=== PATIENT | female | born 1995 | race Caucasian/White ===

== ENCOUNTER 2019-07-14 20:00 | Emergency (ER) | payer OTHER ==
[~2019-07-14] VITALS: Ht 162.6 cm; Wt 97.1 kg
[~2019-07-14 20:00] MED LIST: DESYREL300 MG; HYDROXYZINE HCL25 MG PO; LEXAPRO10 MG PO; PANTOPRAZOLE SO40 MG PO; SEROQUEL25 MG PO; Z LITHIUM CARBON
--- OUTSIDE RECORDS SUMMARY | 2019-07-14 20:04 | XMS REPORT ---
[facility] Address Unknown Phone Unavailable Care Team Providers Care Regulatory Associate Name Role Phone Carola BARNES Unavailable Unavailable Payers Payer Name Policy Type Policy Number Effective Date Expiration Date Problems This patient has no known problems. Allergies, Adverse Reactions, Alerts Allergy Name Allergy Type Status Severity Reaction(s) Onset Date Inactive Date Treating Clinician Comments No Known Allergies DA Active U 2019-01-02 00:00:00 No Known Allergies DA Active U 2018-07-23 00:00:00 No Known Allergies DA Active U 2015-09-25 00:00:00 Medications This patient has no known medications. Encounters Start Date/Time End Date/Time Encounter Type Admission Type Attending Clinicians [facility] Care Department Encounter ID 2018-08-10 00:00:00 2018-08-10 00:00:00 Outpatient [facility] [id number] 2018-08-08 00:00:00 2018-08-08 00:00:00 Outpatient [facility] [id number] 2018-08-05 00:00:00 2018-08-05 00:00:00 Outpatient [facility] [id number] 2018-08-02 00:00:00 2018-08-02 00:00:00 Outpatient [facility] [id number] 2018-07-28 00:00:00 2018-07-28 00:00:00 Outpatient [facility] [id number] 2018-07-08 00:00:00 2018-07-08 00:00:00 Outpatient [facility] [id number] 2018-07-07 00:00:00 2018-07-07 00:00:00 Outpatient [facility] [id number] 2018-06-10 00:00:00 2018-06-10 00:00:00 Outpatient [facility] [id number] 2018-06-01 00:00:00 2018-06-01 00:00:00 Outpatient [facility] [id number] 2018-05-27 15:46:19 2018-05-27 15:46:19 Outpatient [facility] [id number] 2018-05-27 14:42:59 2018-05-27 14:42:59 Outpatient [facility] [id number] 2018-05-26 09:10:24 2018-05-26 09:10:24 Outpatient [facility] [id number] 2018-05-25 00:00:00 2018-05-25 00:00:00 Outpatient [facility] [id number] 2018-05-18 15:24:07 2018-05-18 15:24:07 Outpatient [facility] [id number] 2018-05-12 00:00:00 2018-05-12 00:00:00 Outpatient [facility] [id number] 2018-05-10 00:00:00 2018-05-10 00:00:00 Outpatient [facility] [id number] 2018-05-05 19:22:00 2018-05-05 19:22:00 Emergency [facility] [id number] 2018-05-04 07:32:00 2018-05-04 07:32:00 Outpatient [facility] [id number] 2018-05-04 00:00:00 2018-05-04 00:00:00 Outpatient [facility] [id number] 2018-04-25 13:04:32 2018-04-25 13:04:32 Outpatient [facility] [id number] 2018-04-25 00:00:00 2018-04-25 00:00:00 Outpatient [facility] [id number] 2018-04-22 00:00:00 2018-04-22 00:00:00 Outpatient [facility] [id number] 2018-04-21 16:30:03 2018-04-21 16:30:03 Outpatient [facility] [id number] 2018-04-20 10:40:43 2018-04-20 10:40:43 Outpatient [facility] [id number] 2018-04-15 00:00:00 2018-04-15 00:00:00 Outpatient [facility] [id number] 2018-04-13 00:00:00 2018-04-13 00:00:00 Outpatient [facility] [id number] 2018-04-11 14:00:38 2018-04-11 14:00:38 Outpatient [facility] [id number] 2018-04-08 00:00:00 2018-04-08 00:00:00 Outpatient [facility] [id number] 2018-04-06 00:00:00 2018-04-06 00:00:00 Outpatient [facility] [id number] 2018-03-25 16:25:18 2018-03-25 16:25:18 Outpatient [facility] [id number] 2018-03-25 00:00:00 2018-03-25 00:00:00 Outpatient [facility] [id number] 2018-03-25 00:00:00 2018-03-25 00:00:00 Outpatient [facility] [id number] 2018-03-24 00:00:00 2018-03-24 00:00:00 Outpatient [facility] [id number] 2018-03-21 00:00:00 2018-03-21 00:00:00 Outpatient [facility] [id number] 2018-03-18 15:53:54 2018-03-18 15:53:54 Outpatient [facility] [id number] 2018-03-16 00:00:00 2018-03-16 00:00:00 Outpatient [facility] [id number] 2018-03-11 14:22:55 2018-03-11 14:22:55 Outpatient [facility] [id number] 2018-03-11 00:00:00 2018-03-11 00:00:00 Outpatient [facility] [id number] 2018-03-11 00:00:00 2018-03-11 00:00:00 Outpatient [facility] [id number] 2018-03-09 00:00:00 2018-03-09 00:00:00 Outpatient [facility] [id number] 2018-03-07 14:14:49 2018-03-07 14:14:49 Outpatient [facility] [id number] 2018-03-07 00:00:00 2018-03-07 00:00:00 Outpatient [facility] [id number] 2018-03-07 00:00:00 2018-03-07 00:00:00 Outpatient [facility] [id number] 2018-03-02 00:00:00 2018-03-02 00:00:00 Outpatient [facility] [id number] 2018-02-25 00:00:00 2018-02-25 00:00:00 Outpatient [facility] [id number] 2018-02-18 11:31:07 2018-02-18 11:31:07 Outpatient [facility] [id number] 2018-02-18 00:00:00 2018-02-18 00:00:00 Outpatient [facility] [id number] 2018-02-18 00:00:00 2018-02-18 00:00:00 Outpatient [facility] [id number] 2018-02-16 07:50:25 2018-02-16 07:50:25 Outpatient [facility] [id number] 2018-01-28 10:57:01 2018-01-28 10:57:01 Outpatient [facility] [id number] 2018-01-18 00:00:00 2018-01-18 00:00:00 Outpatient [facility] [id number] 2018-01-13 23:42:00 2018-01-13 23:42:00 Emergency [facility] [id number] 2018-01-04 00:00:00 2018-01-04 00:00:00 Outpatient [facility] [id number] 2018-01-04 00:00:00 2018-01-04 00:00:00 Outpatient [facility] [id number] 2018-01-03 11:49:32 2018-01-03 11:49:32 Outpatient [facility] [id number] 2018-01-03 09:35:36 2018-01-03 09:35:36 Outpatient [facility] [id number] 2018-01-03 00:00:00 2018-01-03 00:00:00 Outpatient [facility] [id number] 2017-12-13 12:11:27 2017-12-13 12:11:27 Outpatient [facility] [id number] 2017-12-10 02:46:06 2017-12-10 02:46:06 Emergency [facility] [id number] 2017-12-07 07:53:26 2017-12-07 07:53:26 Outpatient [facility] [id number] 2017-11-18 00:00:00 2017-11-18 00:00:00 Outpatient [facility] [id number] 2017-11-10 14:55:10 2017-11-10 14:55:10 Outpatient [facility] [id number] 2017-10-28 00:00:00 2017-10-28 00:00:00 Outpatient [facility] [id number] 2017-10-07 19:13:31 2017-10-07 19:13:31 Outpatient [facility] [id number] 2017-09-21 16:14:12 2017-09-21 16:14:12 Outpatient [facility] [id number] 2017-08-26 00:00:00 2017-08-26 00:00:00 Outpatient [facility] [id number] 2017-08-12 00:35:32 2017-08-12 00:35:32 Emergency [facility] [id number] 2017-06-09 00:00:00 2017-06-09 00:00:00 Outpatient [facility] [id number] 2017-06-08 00:00:00 2017-06-08 00:00:00 Outpatient [facility] [id number] 2017-06-08 00:00:00 2017-06-08 00:00:00 Outpatient [facility] [id number] 2017-06-03 09:50:04 2017-06-03 09:50:04 Outpatient [facility] [id number] 2017-05-27 00:00:00 2017-05-27 00:00:00 Outpatient [facility] [id number] 2017-05-19 00:00:00 2017-05-19 00:00:00 Outpatient [facility] [id number] 2017-05-17 13:53:30 2017-05-17 13:53:30 Outpatient [facility] [id number] 2017-05-14 12:24:36 2017-05-14 12:24:36 Outpatient [facility] [id number] 2017-05-14 11:21:58 2017-05-14 11:21:58 Outpatient [facility] [id number] 2017-05-14 00:00:00 2017-05-14 00:00:00 Outpatient [facility] [id number] 2017-05-12 10:55:12 2017-05-12 10:55:12 Outpatient [facility] [id number] 2017-05-07 00:00:00 2017-05-07 00:00:00 Outpatient [facility] [id number] 2017-05-05 00:00:00 2017-05-05 00:00:00 Outpatient [facility] [id number] 2017-05-04 14:50:19 2017-05-04 14:50:19 Outpatient [facility] [id number] 2017-04-23 00:00:00 2017-04-23 00:00:00 Outpatient [facility] [id number] 2017-04-22 16:23:33 2017-04-22 16:23:33 Outpatient [facility] [id number] 2017-04-22 00:00:00 2017-04-22 00:00:00 Outpatient [facility] [id number] 2017-04-20 16:13:07 2017-04-20 16:13:07 Outpatient [facility] [id number] 2017-04-15 00:00:00 2017-04-15 00:00:00 Outpatient [facility] [id number] 2017-04-13 00:00:00 2017-04-13 00:00:00 Outpatient [facility] [id number] 2017-04-08 09:56:02 2017-04-08 09:56:02 Outpatient [facility] [id number] 2017-04-08 08:52:31 2017-04-08 08:52:31 Outpatient [facility] [id number] 2017-04-08 00:00:00 2017-04-08 00:00:00 Outpatient [facility] [id number] 2017-04-07 00:00:00 2017-04-07 00:00:00 Outpatient [facility] [id number] 2017-04-06 20:43:21 2017-04-06 20:43:21 Outpatient [facility] [id number] 2017-04-06 15:49:29 2017-04-06 15:49:29 Emergency [facility] [id number] 2017-04-04 20:18:54 2017-04-04 20:18:54 Emergency [facility] [id number] 2017-04-04 19:28:02 2017-04-04 19:28:02 Emergency [facility] [id number] 2017-03-24 00:00:00 2017-03-24 00:00:00 Outpatient [facility] [id number] 2017-03-22 00:00:00 2017-03-22 00:00:00 Outpatient [facility] [id number] 2017-03-17 13:59:37 2017-03-17 13:59:37 Outpatient [facility] [id number] 2017-03-10 13:52:15 2017-03-10 13:52:15 Outpatient [facility] [id number] 2017-03-03 16:00:42 2017-03-03 16:00:42 Outpatient [facility] [id number] 2017-03-03 13:29:56 2017-03-03 13:29:56 Outpatient [facility] [id number] 2017-02-24 13:38:44 2017-02-24 13:38:44 Outpatient [facility] [id number] 2017-02-19 11:33:43 2017-02-19 11:33:43 Outpatient [facility] [id number] 2017-02-17 14:15:23 2017-02-17 14:15:23 Outpatient [facility] [id number] 2017-02-11 00:00:00 2017-02-11 00:00:00 Outpatient [facility] [id number] 2017-02-10 00:00:00 2017-02-10 00:00:00 Outpatient [facility] [id number] 2017-02-01 00:00:00 2017-02-01 00:00:00 Outpatient [facility] [id number] 2017-01-26 00:00:00 2017-01-26 00:00:00 Outpatient [facility] [id number] 2017-01-19 11:34:18 2017-01-19 11:34:18 Outpatient [facility] [id number] 2017-01-18 13:16:38 2017-01-18 13:16:38 Outpatient [facility] [id number] 2017-01-13 00:00:00 2017-01-13 00:00:00 Outpatient [facility] [id number] 2017-01-12 11:15:25 2017-01-12 11:15:25 Outpatient [facility] [id number] 2017-01-06 16:11:59 2017-01-06 16:11:59 Outpatient [facility] [id number] 2017-01-05 08:00:26 2017-01-05 08:00:26 Outpatient [facility] [id number] 2016-12-30 07:07:00 2016-12-30 07:07:00 Outpatient [facility] [id number] 2016-12-29 11:03:05 2016-12-29 11:03:05 Outpatient [facility] [id number] 2016-12-21 00:00:00 2016-12-21 00:00:00 Outpatient [facility] [id number] 2016-12-18 14:38:22 2016-12-18 14:38:22 Outpatient [facility] [id number] 2016-12-17 10:13:18 2016-12-17 10:13:18 Outpatient [facility] [id number] 2016-12-16 13:27:25 2016-12-16 13:27:25 Outpatient [facility] [id number] 2016-12-16 00:00:00 2016-12-16 00:00:00 Outpatient [facility] [id number] 2016-12-16 00:00:00 2016-12-16 00:00:00 Outpatient [facility] [id number] 15:59:37 2016 15:59:37 Outpatient [facility] [id number] 2016-12-11 00:00:00 2016-12-11 00:00:00 Outpatient [facility] [id number] 2016-12-03 00:00:00 2016-12-03 00:00:00 Outpatient [facility] [id number] 2016-12-03 00:00:00 2016-12-03 00:00:00 Outpatient [facility] [id number] 2016-12-01 15:17:37 2016-12-01 15:17:37 Outpatient [facility] [id number] 2016-11-26 13:10:13 2016-11-26 13:10:13 Outpatient [facility] [id number] 2016-11-26 11:29:40 2016-11-26 11:29:40 Outpatient [facility] [id number] 2016-11-24 13:49:44 2016-11-24 13:49:44 Outpatient [facility] [id number] 2016-11-18 08:07:45 2016-11-18 08:07:45 Outpatient [facility] [id number] 2016-11-09 08:23:29 2016-11-09 08:23:29 Outpatient [facility] [id number] 2016-10-27 10:03:05 2016-10-27 10:03:05 Outpatient [facility] [id number] 2016-10-21 22:39:58 2016-10-21 22:39:58 Emergency [facility] [id number] 2016-10-21 22:04:08 2016-10-21 22:04:08 Emergency [facility] [id number] Results Test Description Test Time Test Comments Text Results Atomic Results Result Comments CHEST 2 VIEWS 2019-07-02 00:43:00 [facility] [place] [address] Patient Name: BIA SEGUNDO MR #: [id number] : 1995 Age/Sex: 23/F Req #: [id number] Adm Physician: Ordered by: RULA BARNES MD Report #: [id number] Location: ER Room/Bed: Procedure: [id number] DX/CHEST 2 VIEWS Exam Date: 07/01/19 Exam Time: 2340 REPORT STATUS: Signed EXAMINATION: CHEST 2 VIEWS INDICATION: Left chest wall pain, cough COMPARISON: None FINDINGS: TUBES and LINES: None. LUNGS: Low lung volumes with bibasilar atelectasis. Subtle central bronchial wall thickening. No consolidations. PLEURA: No pleural effusion or pneumothorax. HEART AND MEDIASTINUM: The cardiomediastinal silhouette is unremarkable. BONES AND SOFT TISSUES: No acute osseous lesion. Soft tissues are unremarkable. UPPER ABDOMEN: No free air under the diaphragm. IMPRESSION: Subtle findings which can be seen with bronchitis. No consolidations. Low lung volumes with bibasilar atelectasis. Signed by: Reagan Schofield DO on 07/02/2019 12:45 AM Dictated By: REAGAN SCHOFIELD DO Transcribed By: VANE on 07/02/1944 COPY TO: RULA BARNES MD BASIC METABOLIC PANEL 2019-01-02 06:36:00 SODIUM (test code=NA) 140 mmol/L 136-145 POTASSIUM (test code=K) 4.2 mmol/L 3.5-5.1 CHLORIDE (test code=CL) 106.0 mmol/L 98-107 CARBON DIOXIDE (test code=CO2) 24.0 mmol/L 21-32 ANION GAP (test code=GAP) 14.2 10-20 GLUCOSE (test code=GLU) 89 mg/dL 74-106 BLOOD UREA NITROGEN (test code=BUN) 17 mg/dL 7-18 GLOMERULAR FILTRATION RATE (test code=GFR) > 60 mL/min >=60 Estimated GFR by using Modified MDRD formula.Chronic kidney disease is defined as either kidney damageor GFR <60 mL/min/1.73 m2 for >3 months. CREATININE (test code=CREAT) 0.70 mg/dL 0.55-1.02 Note change in reference range due to change in reagent. BUN/CREATININE RATIO (test code=BUN/CREA) 24.3 10-20 CALCIUM (test code=CA) 9.1 mg/dL 8.5-10.1 HEPATIC FUNCTION [id number] 06:36:00* Test Item Value Reference Range Comments TOTAL PROTEIN (test code=PROT) 7.4 gram/dL 6.4-8.2 ALBUMIN (test code=ALB) 3.7 g/dL 3.4-5.0 GLOBULIN (test code=GLOB) 3.7 gram/dL 2.7-4.2 ALBUMIN/GLOBULIN RATIO (test code=A/G) 1.0 0.75-1.50 BILIRUBIN TOTAL (test code=BILT) 0.20 mg/dL 0.0-1.0 BILIRUBIN DIRECT (test code=BILD) < 0.05 mg/dL 0.0-0.20 SGOT/AST (test code=AST) 14 IUnit/L 15-37 SGPT/ALT (test code=ALT) 24 IUnit/L 12-78 ALKALINE PHOSPHATASE TOTAL (test code=ALKP) 68 IUnit/L 45-117 Note change in reference range due to change in reagent. HCG SERUM [id number] 06:36:00* Test Item Value Reference Range Comments HCG SERUM QUAL (test code=HCGQL) NEGATIVE NEGATIVE This HCGQL test is NOT applicable for MALE patients.Check with nurse about probable order error.If Tumor Marker Test needed, nurse should order test "HCGTU"(Test #550.42062) [id number] 06:36:00* Test Item Value Reference Range Comments ACETAMINOPHEN (test code=ACET) < 10 mcg/mL 10-30 A RANGE OF 10-30 mcg/mL IS A THERAPEUTIC RANGE. TOXIC CONCENTRATIONS: >150 mcg/mL AT 4 HOURS AFTER INGESTION >=50 mcg/mL AT 12 HOURS AFTER INGESTION [id number] 06:36:00* Test Item Value Reference Range Comments SALICYLATE (test code=LEN) < 1.7 mg/dL 2.8-20.0 [id number] 06:36:00* Test Item Value Reference Range Comments ALCOHOL (test code=ALC) < 3 mg/dL 0.0-3.0 INTERPRETIVE DATA NOTE: POSITIVE SCREENING RESULTS SHOULD BE CONSIDERED PRESUMPTIVE.WHEN COLLECTED FOR MEDICAL PURPOSES ONLY. SPECIMEN WILL NOTBE COLLECTED BY CHAIN OF CUSTODY.IF A CONFIRMATION OF POSITIVE RESULTS IS DESIRED, ACONFIRMATION TEST MUST BE REQUESTED BY THE PHYSICIAN AT ANADDITIONAL CHARGE TO THE PATIENT. BASIC METABOLIC [id number] 06:31:00* Test Item Value Reference Range Comments SODIUM (test code=NA) 140 mmol/L 136-145 POTASSIUM (test code=K) 4.2 mmol/L 3.5-5.1 CHLORIDE (test code=CL) 106.0 mmol/L 98-107 CARBON DIOXIDE (test code=CO2) mmol/L 21-32 ANION GAP (test code=GAP) 10-20 GLUCOSE (test code=GLU) mg/dL 74-106 BLOOD UREA NITROGEN (test code=BUN) mg/dL 7-18 GLOMERULAR FILTRATION RATE (test code=GFR) mL/min >=60 CREATININE (test code=CREAT) mg/dL 0.55-1.02 BUN/CREATININE RATIO (test code=BUN/CREA) 10-20 CALCIUM (test code=CA) mg/dL 8.5-10.1 HEPATIC FUNCTION [id number] 06:31:00* Test Item Value Reference Range Comments TOTAL PROTEIN (test code=PROT) gram/dL 6.4-8.2 ALBUMIN (test code=ALB) g/dL 3.4-5.0 GLOBULIN (test code=GLOB) gram/dL 2.7-4.2 ALBUMIN/GLOBULIN RATIO (test code=A/G) 0.75-1.50 BILIRUBIN TOTAL (test code=BILT) mg/dL 0.0-1.0 BILIRUBIN DIRECT (test code=BILD) mg/dL 0.0-0.20 SGOT/AST (test code=AST) IUnit/L 15-37 SGPT/ALT (test code=ALT) IUnit/L 12-78 ALKALINE PHOSPHATASE TOTAL (test code=ALKP) IUnit/L 45-117 HCG SERUM [id number] 06:31:00* Test Item Value Reference Range Comments HCG SERUM QUAL (test code=HCGQL) NEGATIVE NEGATIVE This HCGQL test is NOT applicable for MALE patients.Check with nurse about probable order error.If Tumor Marker Test needed, nurse should order test "HCGTU"(Test #550.95150) [id number] 06:31:00* Test Item Value Reference Range Comments ACETAMINOPHEN (test code=ACET) mcg/mL 10-30 [id number] 06:31:00* Test Item Value Reference Range Comments SALICYLATE (test code=LEN) mg/dL 2.8-20.0 [id number] 06:31:00* Test Item Value Reference Range Comments ALCOHOL (test code=ALC) mg/dL 0-3 BASIC METABOLIC [id number] 06:28:00* Test Item Value Reference Range Comments SODIUM (test code=NA) 140 mmol/L 136-145 POTASSIUM (test code=K) 4.2 mmol/L 3.5-5.1 CHLORIDE (test code=CL) 106.0 mmol/L 98-107 CARBON DIOXIDE (test code=CO2) mmol/L 21-32 ANION GAP (test code=GAP) 10-20 GLUCOSE (test code=GLU) mg/dL 74-106 BLOOD UREA NITROGEN (test code=BUN) mg/dL 7-18 GLOMERULAR FILTRATION RATE (test code=GFR) mL/min >=60 CREATININE (test code=CREAT) mg/dL 0.55-1.02 BUN/CREATININE RATIO (test code=BUN/CREA) 10-20 CALCIUM (test code=CA) mg/dL 8.5-10.1 HEPATIC FUNCTION [id number] 06:28:00* Test Item Value Reference Range Comments TOTAL PROTEIN (test code=PROT) gram/dL 6.4-8.2 ALBUMIN (test code=ALB) g/dL 3.4-5.0 GLOBULIN (test code=GLOB) gram/dL 2.7-4.2 ALBUMIN/GLOBULIN RATIO (test code=A/G) 0.75-1.50 BILIRUBIN TOTAL (test code=BILT) mg/dL 0.0-1.0 BILIRUBIN DIRECT (test code=BILD) mg/dL 0.0-0.20 SGOT/AST (test code=AST) IUnit/L 15-37 SGPT/ALT (test code=ALT) IUnit/L 12-78 ALKALINE PHOSPHATASE TOTAL (test code=ALKP) IUnit/L 45-117 HCG SERUM [id number] 06:28:00* Test Item Value Reference Range Comments HCG SERUM QUAL (test code=HCGQL) NEGATIVE [id number] 06:28:00* Test Item Value Reference Range Comments ACETAMINOPHEN (test code=ACET) mcg/mL 10-30 [id number] 06:28:00* Test Item Value Reference Range Comments SALICYLATE (test code=LEN) mg/dL 2.8-20.0 [id number] 06:28:00* Test Item Value Reference Range Comments ALCOHOL (test code=ALC) mg/dL 0-3 CBC W/O [id number] 06:19:00* Test Item Value Reference Range Comments WHITE BLOOD CELL (test code=WBC) 14.4 K/mm3 4.5-12.5 RED BLOOD CELL (test code=RBC) 4.84 mill/mm3 3.7-5.2 HEMOGLOBIN (test code=HGB) 12.0 gram/dL 11.5-15.5 HEMATOCRIT (test code=HCT) 38.5 % 36.0-46.0 MEAN CELL VOLUME (test code=MCV) 79.5 fL 80-98 MEAN CELL HGB (test code=MCH) 24.8 picogram 27.0-33.0 MEAN CELL HGB CONCETRATION (test code=MCHC) 31.2 gram/dL 33.0-36.0 RED CELL DISTRIBUTION WIDTH (test code=RDW) 13.7 % 11.6-16.2 PLATELET COUNT (test code=PLT) 305 K/mm3 150-450 MEAN PLATELET VOLUME (test code=MPV) 10.7 fL 6.7-11.0 CBC W/O [id number] 06:18:00* Test Item Value Reference Range Comments WHITE BLOOD CELL (test code=WBC) K/mm3 4.5-12.5 RED BLOOD CELL (test code=RBC) mill/mm3 3.7-5.2 HEMOGLOBIN (test code=HGB) 12.0 gram/dL 11.5-15.5 HEMATOCRIT (test code=HCT) 38.5 % 36.0-46.0 MEAN CELL VOLUME (test code=MCV) fL 80-98 MEAN CELL HGB (test code=MCH) picogram 27.0-33.0 MEAN CELL HGB CONCETRATION (test code=MCHC) gram/dL 33.0-36.0 RED CELL DISTRIBUTION WIDTH (test code=RDW) % 11.6-16.2 PLATELET COUNT (test code=PLT) K/mm3 150-450 MEAN PLATELET VOLUME (test code=MPV) fL 6.7-11.0 URINALYSIS [id number] 04:29:00* Test Item Value Reference Range Comments UA COLOR (test code=COLU) YELLOW YELLOW UA APPEARANCE (test code=APPU) CLEAR CLEAR UA GLUCOSE DIPSTICK (test code=DGLUU) NEGATIVE mg/dL NEGATIVE UA BILIRUBIN DIPSTICK (test code=BILU) NEGATIVE mg/dL NEGATIVE UA KETONE DIPSTICK (test code=KETU) NEGATIVE mg/dL NEGATIVE UA SPECIFIC GRAVITY (test code=SGU) 1.025 1.001-1.035 UA BLOOD DIPSTICK (test code=IRIS) Negative mg/dL NEGATIVE UA PH DIPSTICK (test code=FLAKITA) 5.5 5.0-8.0 UA PROTEIN DIPSTICK (test code=PROU) NEGATIVE mg/dL NEGATIVE UA UROBILINIOGEN DIPSTICK (test code=URO) Normal mg/dL NEGATIVE UA NITRITE DIPSTICK (test code=JUAN) NEGATIVE NEGATIVE UA LEUKOCYTE ESTERASE W REFLEX (test code=LEUUR) NEGATIVE Jaida/uL NEGATIVE UA WBC (test code=WBCU) 0-5 per HPF 0-5 UA RBC (test code=RBCU) 0-2 #/HPF 0-5 UA EPITHELIAL CELLS (test code=EPIU) FEW per HPF FEW UA BACTERIA (test code=BACU) FEW #/HPF NONE UA MUCUS (test code=MUCU) FEW #/LPF FEW Urine Source? Clean CatchDRUGS OF ABUSE SCREEN [id number] 04:29:00* Test Item Value Reference Range Comments URN COCAINE (test code=COCAURN) NEGATIVE <300 ng/mL URN CANNABINOIDS (test code=CANNABURN) POSITIVE <50 ng/mL This test provides only a preliminary test result. A morespecific alternate chemical method must be used in order toobtain a confirmed analytical result. Gas chromatography/mass spectrometry (GC/MS) is thepreferred confirmatory method. Other chemical confirmationmethods are available. Clinical consideration and professional judgment should be applied to any drug of abusetest result, particularly when preliminary positive resultsare used.Unconfirmed screening results must not be used fornon-medical purposes (e.g., employment testing, legaltesting). URN AMPHETAMINE (test code=AMPHETURN) NEGATIVE <1000 ng/mL URN BARBITURATE (test code=BARBITURN) NEGATIVE <200 ng/mL URN BENZODIAZEPINE (test code=BENZOURN) NEGATIVE <200 ng/mL URN OPIATES (test code=OPIATURN) NEGATIVE <300 ng/mL URN PHENCYCLIDINE (PCP) (test code=PHENCURN) NEGATIVE <25 ng/mL URN METHADONE (test code=METHAURN) NEGATIVE <300 ng/mL Urine Source? Clean CatchURINALYSIS [id number] 04:27:00* Test Item Value Reference Range Comments UA COLOR (test code=COLU) YELLOW YELLOW UA APPEARANCE (test code=APPU) CLEAR CLEAR UA GLUCOSE DIPSTICK (test code=DGLUU) NEGATIVE mg/dL NEGATIVE UA BILIRUBIN DIPSTICK (test code=BILU) NEGATIVE mg/dL NEGATIVE UA KETONE DIPSTICK (test code=KETU) NEGATIVE mg/dL NEGATIVE UA SPECIFIC GRAVITY (test code=SGU) 1.025 1.001-1.035 UA BLOOD DIPSTICK (test code=IRIS) Negative mg/dL NEGATIVE UA PH DIPSTICK (test code=FLAKITA) 5.5 5.0-8.0 UA PROTEIN DIPSTICK (test code=PROU) NEGATIVE mg/dL NEGATIVE UA UROBILINIOGEN DIPSTICK (test code=URO) Normal mg/dL NEGATIVE UA NITRITE DIPSTICK (test code=JUAN) NEGATIVE NEGATIVE UA LEUKOCYTE ESTERASE W REFLEX (test code=LEUUR) NEGATIVE Jaida/uL NEGATIVE UA WBC (test code=WBCU) 0-5 per HPF 0-5 UA RBC (test code=RBCU) 0-2 #/HPF 0-5 UA EPITHELIAL CELLS (test code=EPIU) FEW per HPF FEW UA BACTERIA (test code=BACU) FEW #/HPF NONE UA MUCUS (test code=MUCU) FEW #/LPF FEW Urine Source? Clean CatchDRUGS OF ABUSE SCREEN [id number] 04:27:00* Test Item Value Reference Range Comments URN COCAINE (test code=COCAURN) <300 ng/mL URN CANNABINOIDS (test code=CANNABURN) <50 ng/mL URN AMPHETAMINE (test code=AMPHETURN) <1000 ng/mL URN BARBITURATE (test code=BARBITURN) <200 ng/mL URN BENZODIAZEPINE (test code=BENZOURN) <200 ng/mL URN OPIATES (test code=OPIATURN) <300 ng/mL URN PHENCYCLIDINE (PCP) (test code=PHENCURN) <25 ng/mL URN METHADONE (test code=METHAURN) <300 ng/mL Urine Source? Clean CatchBASIC METABOLIC [id number] 15:52:00* Test Item Value Reference Range Comments SODIUM (test code=NA) 140 mmol/L 136-145 RESULT VERIFIED BY REPEAT ANALYSIS POTASSIUM (test code=K) 4.4 mmol/L 3.5-5.1 CHLORIDE (test code=CL) 107.0 mmol/L 98-107 CARBON DIOXIDE (test code=CO2) 25.0 mmol/L 21-32 ANION GAP (test code=GAP) 12.4 10-20 GLUCOSE (test code=GLU) 89 mg/dL 74-106 BLOOD UREA NITROGEN (test code=BUN) 20 mg/dL 7-18 GLOMERULAR FILTRATION RATE (test code=GFR) > 60 mL/min >=60 Estimated GFR by using Modified MDRD formula.Chronic kidney disease is defined as either kidney damageor GFR <60 mL/min/1.73 m2 for >3 months. CREATININE (test code=CREAT) 0.70 mg/dL 0.55-1.02 Note change in reference range due to change in reagent. BUN/CREATININE RATIO (test code=BUN/CREA) 29.8 10-20 CALCIUM (test code=CA) 9.0 mg/dL 8.5-10.1 HEPATIC FUNCTION [id number] 15:52:00* Test Item Value Reference Range Comments TOTAL PROTEIN (test code=PROT) 8.2 gram/dL 6.4-8.2 ALBUMIN (test code=ALB) 3.8 g/dL 3.4-5.0 GLOBULIN (test code=GLOB) 4.4 gram/dL 2.7-4.2 ALBUMIN/GLOBULIN RATIO (test code=A/G) 0.9 0.75-1.50 BILIRUBIN TOTAL (test code=BILT) 0.30 mg/dL 0.0-1.0 BILIRUBIN DIRECT (test code=BILD) 0.10 mg/dL 0.0-0.20 SGOT/AST (test code=AST) 36 IUnit/L 15-37 SGPT/ALT (test code=ALT) 24 IUnit/L 12-78 ALKALINE PHOSPHATASE TOTAL (test code=ALKP) 60 IUnit/L 45-117 Note change in reference range due to change in reagent. HCG SERUM [id number] 15:52:00* Test Item Value Reference Range Comments HCG SERUM QUAL (test code=HCGQL) NEGATIVE NEGATIVE This HCGQL test is NOT applicable for MALE patients.Check with nurse about probable order error.If Tumor Marker Test needed, nurse should order test "HCGTU"(Test #550.72436) [id number] 15:52:00* Test Item Value Reference Range Comments ALCOHOL (test code=ALC) < 3 mg/dL 0.0-3.0 INTERPRETIVE DATA NOTE: POSITIVE SCREENING RESULTS SHOULD BE CONSIDERED PRESUMPTIVE.WHEN COLLECTED FOR MEDICAL PURPOSES ONLY. SPECIMEN WILL NOTBE COLLECTED BY CHAIN OF CUSTODY.IF A CONFIRMATION OF POSITIVE RESULTS IS DESIRED, ACONFIRMATION TEST MUST BE REQUESTED BY THE PHYSICIAN AT ANADDITIONAL CHARGE TO THE PATIENT. URINALYSIS [id number] 15:52:00* Test Item Value Reference Range Comments UA COLOR (test code=COLU) LIGHT YELLOW YELLOW UA APPEARANCE (test code=APPU) SLIGHTLY CLOUDY CLEAR UA GLUCOSE DIPSTICK (test code=DGLUU) NEGATIVE mg/dL NEGATIVE UA BILIRUBIN DIPSTICK (test code=BILU) NEGATIVE mg/dL NEGATIVE UA KETONE DIPSTICK (test code=KETU) Negative mg/dL NEGATIVE UA SPECIFIC GRAVITY (test code=SGU) 1.020 1.001-1.035 UA BLOOD DIPSTICK (test code=IRIS) 2+ (Moderate) NEGATIVE UA PH DIPSTICK (test code=FLAKITA) 5.0 5.0-8.0 UA PROTEIN DIPSTICK (test code=PROU) Negative mg/dL NEGATIVE UA UROBILINIOGEN DIPSTICK (test code=URO) NEGATIVE mg/dL NEGATIVE UA NITRITE DIPSTICK (test code=JUAN) NEGATIVE NEGATIVE UA LEUKOCYTE ESTERASE W REFLEX (test code=LEUUR) NEGATIVE NEGATIVE UA WBC (test code=WBCU) 0-5 #/HPF 0-5 UA RBC (test code=RBCU) 0-2 #/HPF 0-5 UA EPITHELIAL CELLS (test code=EPIU) MOD per HPF FEW UA BACTERIA (test code=BACU) FEW #/HPF NONE UA MUCUS (test code=MUCU) FEW #/LPF FEW Urine Source? Clean CatchDRUGS OF ABUSE SCREEN [id number] 15:52:00* Test Item Value Reference Range Comments URN COCAINE (test code=COCAURN) NEGATIVE <300 ng/mL URN CANNABINOIDS (test code=CANNABURN) NEGATIVE <50 ng/mL URN AMPHETAMINE (test code=AMPHETURN) NEGATIVE <1000 ng/mL URN BARBITURATE (test code=BARBITURN) NEGATIVE <200 ng/mL URN BENZODIAZEPINE (test code=BENZOURN) NEGATIVE <200 ng/mL URN OPIATES (test code=OPIATURN) NEGATIVE <300 ng/mL URN PHENCYCLIDINE (PCP) (test code=PHENCURN) NEGATIVE <25 ng/mL URN METHADONE (test code=METHAURN) NEGATIVE <300 ng/mL Urine Source? Clean CatchURINALYSIS [id number] 15:42:00* Test Item Value Reference Range Comments UA COLOR (test code=COLU) LIGHT YELLOW YELLOW UA APPEARANCE (test code=APPU) SLIGHTLY CLOUDY CLEAR UA GLUCOSE DIPSTICK (test code=DGLUU) NEGATIVE mg/dL NEGATIVE UA BILIRUBIN DIPSTICK (test code=BILU) NEGATIVE mg/dL NEGATIVE UA KETONE DIPSTICK (test code=KETU) Negative mg/dL NEGATIVE UA SPECIFIC GRAVITY (test code=SGU) 1.020 1.001-1.035 UA BLOOD DIPSTICK (test code=IRIS) 2+ (Moderate) NEGATIVE UA PH DIPSTICK (test code=FLAKITA) 5.0 5.0-8.0 UA PROTEIN DIPSTICK (test code=PROU) Negative mg/dL NEGATIVE UA UROBILINIOGEN DIPSTICK (test code=URO) NEGATIVE mg/dL NEGATIVE UA NITRITE DIPSTICK (test code=JUAN) NEGATIVE NEGATIVE UA LEUKOCYTE ESTERASE W REFLEX (test code=LEUUR) NEGATIVE NEGATIVE UA WBC (test code=WBCU) 0-5 #/HPF 0-5 UA RBC (test code=RBCU) 0-2 #/HPF 0-5 UA EPITHELIAL CELLS (test code=EPIU) MOD per HPF FEW UA BACTERIA (test code=BACU) FEW #/HPF NONE UA MUCUS (test code=MUCU) FEW #/LPF FEW Urine Source? Clean CatchDRUGS OF ABUSE SCREEN [id number] 15:42:00* Test Item Value Reference Range Comments URN COCAINE (test code=COCAURN) <300 ng/mL URN CANNABINOIDS (test code=CANNABURN) <50 ng/mL URN AMPHETAMINE (test code=AMPHETURN) <1000 ng/mL URN BARBITURATE (test code=BARBITURN) <200 ng/mL URN BENZODIAZEPINE (test code=BENZOURN) <200 ng/mL URN OPIATES (test code=OPIATURN) <300 ng/mL URN PHENCYCLIDINE (PCP) (test code=PHENCURN) <25 ng/mL URN METHADONE (test code=METHAURN) <300 ng/mL Urine Source? Clean CatchBASIC METABOLIC [id number] 15:39:00* Test Item Value Reference Range Comments SODIUM (test code=NA) 140 mmol/L 136-145 RESULT VERIFIED BY REPEAT ANALYSIS POTASSIUM (test code=K) 4.4 mmol/L 3.5-5.1 CHLORIDE (test code=CL) 107.0 mmol/L 98-107 CARBON DIOXIDE (test code=CO2) mmol/L 21-32 ANION GAP (test code=GAP) 10-20 GLUCOSE (test code=GLU) mg/dL 74-106 BLOOD UREA NITROGEN (test code=BUN) mg/dL 7-18 GLOMERULAR FILTRATION RATE (test code=GFR) mL/min >=60 CREATININE (test code=CREAT) mg/dL 0.55-1.02 BUN/CREATININE RATIO (test code=BUN/CREA) 10-20 CALCIUM (test code=CA) mg/dL 8.5-10.1 HEPATIC FUNCTION [id number] 15:39:00* Test Item Value Reference Range Comments TOTAL PROTEIN (test code=PROT) gram/dL 6.4-8.2 ALBUMIN (test code=ALB) g/dL 3.4-5.0 GLOBULIN (test code=GLOB) gram/dL 2.7-4.2 ALBUMIN/GLOBULIN RATIO (test code=A/G) 0.75-1.50 BILIRUBIN TOTAL (test code=BILT) mg/dL 0.0-1.0 BILIRUBIN DIRECT (test code=BILD) mg/dL 0.0-0.20 SGOT/AST (test code=AST) IUnit/L 15-37 SGPT/ALT (test code=ALT) IUnit/L 12-78 ALKALINE PHOSPHATASE TOTAL (test code=ALKP) IUnit/L 45-117 HCG SERUM [id number] 15:39:00* Test Item Value Reference Range Comments HCG SERUM QUAL (test code=HCGQL) NEGATIVE NEGATIVE This HCGQL test is NOT applicable for MALE patients.Check with nurse about probable order error.If Tumor Marker Test needed, nurse should order test "HCGTU"(Test #[id number]) [id number] 15:39:00* Test Item Value Reference Range Comments ALCOHOL (test code=ALC) mg/dL 0-3 BASIC METABOLIC [id number] 15:38:00* Test Item Value Reference Range Comments SODIUM (test code=NA) mmol/L 136-145 POTASSIUM (test code=K) mmol/L 3.5-5.1 CHLORIDE (test code=CL) mmol/L 98-107 CARBON DIOXIDE (test code=CO2) mmol/L 21-32 ANION GAP (test code=GAP) 10-20 GLUCOSE (test code=GLU) mg/dL 74-106 BLOOD UREA NITROGEN (test code=BUN) mg/dL 7-18 GLOMERULAR FILTRATION RATE (test code=GFR) mL/min >=60 CREATININE (test code=CREAT) mg/dL 0.55-1.02 BUN/CREATININE RATIO (test code=BUN/CREA) 10-20 CALCIUM (test code=CA) mg/dL 8.5-10.1 HEPATIC FUNCTION [id number] 15:38:00* Test Item Value Reference Range Comments TOTAL PROTEIN (test code=PROT) gram/dL 6.4-8.2 ALBUMIN (test code=ALB) g/dL 3.4-5.0 GLOBULIN (test code=GLOB) gram/dL 2.7-4.2 ALBUMIN/GLOBULIN RATIO (test code=A/G) 0.75-1.50 BILIRUBIN TOTAL (test code=BILT) mg/dL 0.0-1.0 BILIRUBIN DIRECT (test code=BILD) mg/dL 0.0-0.20 SGOT/AST (test code=AST) IUnit/L 15-37 SGPT/ALT (test code=ALT) IUnit/L 12-78 ALKALINE PHOSPHATASE TOTAL (test code=ALKP) IUnit/L 45-117 HCG SERUM [id number] 15:38:00* Test Item Value Reference Range Comments HCG SERUM QUAL (test code=HCGQL) NEGATIVE NEGATIVE This HCGQL test is NOT applicable for MALE patients.Check with nurse about probable order error.If Tumor Marker Test needed, nurse should order test "HCGTU"(Test #[id number]) [id number] 15:38:00* Test Item Value Reference Range Comments ALCOHOL (test code=ALC) mg/dL 0-3 URINALYSIS [id number] 15:34:00* Test Item Value Reference Range Comments UA COLOR (test code=COLU) LIGHT YELLOW YELLOW UA APPEARANCE (test code=APPU) SLIGHTLY CLOUDY CLEAR UA GLUCOSE DIPSTICK (test code=DGLUU) NEGATIVE mg/dL NEGATIVE UA BILIRUBIN DIPSTICK (test code=BILU) NEGATIVE mg/dL NEGATIVE UA KETONE DIPSTICK (test code=KETU) Negative mg/dL NEGATIVE UA SPECIFIC GRAVITY (test code=SGU) 1.020 1.001-1.035 UA BLOOD DIPSTICK (test code=IRIS) 2+ (Moderate) NEGATIVE UA PH DIPSTICK (test code=FLAKITA) 5.0 5.0-8.0 UA PROTEIN DIPSTICK (test code=PROU) Negative mg/dL NEGATIVE UA UROBILINIOGEN DIPSTICK (test code=URO) NEGATIVE mg/dL NEGATIVE UA NITRITE DIPSTICK (test code=JUAN) NEGATIVE NEGATIVE UA LEUKOCYTE ESTERASE W REFLEX (test code=LEUUR) NEGATIVE NEGATIVE UA WBC (test code=WBCU) per HPF 0-5 Urine Source? Clean CatchDRUGS OF ABUSE SCREEN [id number] 15:34:00* Test Item Value Reference Range Comments URN COCAINE (test code=COCAURN) <300 ng/mL URN CANNABINOIDS (test code=CANNABURN) <50 ng/mL URN AMPHETAMINE (test code=AMPHETURN) <1000 ng/mL URN BARBITURATE (test code=BARBITURN) <200 ng/mL URN BENZODIAZEPINE (test code=BENZOURN) <200 ng/mL URN OPIATES (test code=OPIATURN) <300 ng/mL URN PHENCYCLIDINE (PCP) (test code=PHENCURN) <25 ng/mL URN METHADONE (test code=METHAURN) <300 ng/mL Urine Source? Clean CatchCBC W/O [id number] 15:31:00* Test Item Value Reference Range Comments WHITE BLOOD CELL (test code=WBC) 10.7 K/mm3 4.5-12.5 RED BLOOD CELL (test code=RBC) 4.84 mill/mm3 3.7-5.2 HEMOGLOBIN (test code=HGB) 11.5 gram/dL 11.5-15.5 HEMATOCRIT (test code=HCT) 38.1 % 36.0-46.0 MEAN CELL VOLUME (test code=MCV) 78.7 fL 80-98 MEAN CELL HGB (test code=MCH) 23.8 picogram 27.0-33.0 MEAN CELL HGB CONCETRATION (test code=MCHC) 30.2 gram/dL 33.0-36.0 RED CELL DISTRIBUTION WIDTH (test code=RDW) 14.9 % 11.6-16.2 PLATELET COUNT (test code=PLT) 316 K/mm3 150-450 MEAN PLATELET VOLUME (test code=MPV) 11.2 fL 6.7-11.0 BASIC METABOLIC [id number] 22:35:00* Test Item Value Reference Range Comments SODIUM (test code=NA) 145 mmol/L 136-145 POTASSIUM (test code=K) 4.2 mmol/L 3.5-5.1 CHLORIDE (test code=CL) 109.0 mmol/L 98-107 CARBON DIOXIDE (test code=CO2) 25.0 mmol/L 21-32 ANION GAP (test code=GAP) 15.2 10-20 GLUCOSE (test code=GLU) 89 mg/dL 74-106 BLOOD UREA NITROGEN (test code=BUN) 19 mg/dL 7-18 GLOMERULAR FILTRATION RATE (test code=GFR) > 60 mL/min >=60 Estimated GFR by using Modified MDRD formula.Chronic kidney disease is defined as either kidney damageor GFR <60 mL/min/1.73 m2 for >3 months. CREATININE (test code=CREAT) 0.70 mg/dL 0.55-1.02 Note change in reference range due to change in reagent. BUN/CREATININE RATIO (test code=BUN/CREA) 28.2 10-20 CALCIUM (test code=CA) 8.8 mg/dL 8.5-10.1 HEPATIC FUNCTION [id number] 22:35:00* Test Item Value Reference Range Comments TOTAL PROTEIN (test code=PROT) 7.7 gram/dL 6.4-8.2 ALBUMIN (test code=ALB) 3.8 g/dL 3.4-5.0 GLOBULIN (test code=GLOB) 3.9 gram/dL 2.7-4.2 ALBUMIN/GLOBULIN RATIO (test code=A/G) 1.0 0.75-1.50 BILIRUBIN TOTAL (test code=BILT) 0.20 mg/dL 0.0-1.0 BILIRUBIN DIRECT (test code=BILD) 0.08 mg/dL 0.0-0.20 SGOT/AST (test code=AST) 23 IUnit/L 15-37 SGPT/ALT (test code=ALT) 22 IUnit/L 12-78 ALKALINE PHOSPHATASE TOTAL (test code=ALKP) 61 IUnit/L 45-117 Note change in reference range due to change in reagent. HCG SERUM [id number] 22:35:00* Test Item Value Reference Range Comments HCG SERUM QUAL (test code=HCGQL) NEGATIVE NEGATIVE This HCGQL test is NOT applicable for MALE patients.Check with nurse about probable order error.If Tumor Marker Test needed, nurse should order test "HCGTU"(Test #[id number]) [id number] 22:35:00* Test Item Value Reference Range Comments ACETAMINOPHEN (test code=ACET) < 10 mcg/mL 10-30 A RANGE OF 10-30 mcg/mL IS A THERAPEUTIC RANGE. TOXIC CONCENTRATIONS: >150 mcg/mL AT 4 HOURS AFTER INGESTION >=50 mcg/mL AT 12 HOURS AFTER INGESTION [id number] 22:35:00* Test Item Value Reference Range Comments SALICYLATE (test code=LEN) < 1.7 mg/dL 2.8-20.0 [id number] 22:35:00* Test Item Value Reference Range Comments ALCOHOL (test code=ALC) 7 mg/dL 0.0-3.0 INTERPRETIVE DATA NOTE: POSITIVE SCREENING RESULTS SHOULD BE CONSIDERED PRESUMPTIVE.WHEN COLLECTED FOR MEDICAL PURPOSES ONLY. SPECIMEN WILL NOTBE COLLECTED BY CHAIN OF CUSTODY.IF A CONFIRMATION OF POSITIVE RESULTS IS DESIRED, ACONFIRMATION TEST MUST BE REQUESTED BY THE PHYSICIAN AT ANADDITIONAL CHARGE TO THE PATIENT. BASIC METABOLIC [id number] 22:31:00* Test Item Value Reference Range Comments SODIUM (test code=NA) 145 mmol/L 136-145 POTASSIUM (test code=K) 4.2 mmol/L 3.5-5.1 CHLORIDE (test code=CL) 109.0 mmol/L 98-107 CARBON DIOXIDE (test code=CO2) mmol/L 21-32 ANION GAP (test code=GAP) 10-20 GLUCOSE (test code=GLU) mg/dL 74-106 BLOOD UREA NITROGEN (test code=BUN) mg/dL 7-18 GLOMERULAR FILTRATION RATE (test code=GFR) mL/min >=60 CREATININE (test code=CREAT) mg/dL 0.55-1.02 BUN/CREATININE RATIO (test code=BUN/CREA) 10-20 CALCIUM (test code=CA) mg/dL 8.5-10.1 HEPATIC FUNCTION [id number] 22:31:00* Test Item Value Reference Range Comments TOTAL PROTEIN (test code=PROT) gram/dL 6.4-8.2 ALBUMIN (test code=ALB) g/dL 3.4-5.0 GLOBULIN (test code=GLOB) gram/dL 2.7-4.2 ALBUMIN/GLOBULIN RATIO (test code=A/G) 0.75-1.50 BILIRUBIN TOTAL (test code=BILT) mg/dL 0.0-1.0 BILIRUBIN DIRECT (test code=BILD) mg/dL 0.0-0.20 SGOT/AST (test code=AST) IUnit/L 15-37 SGPT/ALT (test code=ALT) IUnit/L 12-78 ALKALINE PHOSPHATASE TOTAL (test code=ALKP) IUnit/L 45-117 HCG SERUM [id number] 22:31:00* Test Item Value Reference Range Comments HCG SERUM QUAL (test code=HCGQL) NEGATIVE NEGATIVE This HCGQL test is NOT applicable for MALE patients.Check with nurse about probable order error.If Tumor Marker Test needed, nurse should order test "HCGTU"(Test #[id number]) [id number] 22:31:00* Test Item Value Reference Range Comments ACETAMINOPHEN (test code=ACET) mcg/mL 10-30 [id number] 22:31:00* Test Item Value Reference Range Comments SALICYLATE (test code=LEN) mg/dL 2.8-20.0 [id number] 22:31:00* Test Item Value Reference Range Comments ALCOHOL (test code=ALC) mg/dL 0-3 BASIC METABOLIC [id number] 22:26:00* Test Item Value Reference Range Comments SODIUM (test code=NA) 145 mmol/L 136-145 POTASSIUM (test code=K) 4.2 mmol/L 3.5-5.1 CHLORIDE (test code=CL) 109.0 mmol/L 98-107 CARBON DIOXIDE (test code=CO2) mmol/L 21-32 ANION GAP (test code=GAP) 10-20 GLUCOSE (test code=GLU) mg/dL 74-106 BLOOD UREA NITROGEN (test code=BUN) mg/dL 7-18 GLOMERULAR FILTRATION RATE (test code=GFR) mL/min >=60 CREATININE (test code=CREAT) mg/dL 0.55-1.02 BUN/CREATININE RATIO (test code=BUN/CREA) 10-20 CALCIUM (test code=CA) mg/dL 8.5-10.1 HEPATIC FUNCTION [id number] 22:26:00* Test Item Value Reference Range Comments TOTAL PROTEIN (test code=PROT) gram/dL 6.4-8.2 ALBUMIN (test code=ALB) g/dL 3.4-5.0 GLOBULIN (test code=GLOB) gram/dL 2.7-4.2 ALBUMIN/GLOBULIN RATIO (test code=A/G) 0.75-1.50 BILIRUBIN TOTAL (test code=BILT) mg/dL 0.0-1.0 BILIRUBIN DIRECT (test code=BILD) mg/dL 0.0-0.20 SGOT/AST (test code=AST) IUnit/L 15-37 SGPT/ALT (test code=ALT) IUnit/L 12-78 ALKALINE PHOSPHATASE TOTAL (test code=ALKP) IUnit/L 45-117 HCG SERUM [id number] 22:26:00* Test Item Value Reference Range Comments HCG SERUM QUAL (test code=HCGQL) NEGATIVE [id number] 22:26:00* Test Item Value Reference Range Comments ACETAMINOPHEN (test code=ACET) mcg/mL 10-30 [id number] 22:26:00* Test Item Value Reference Range Comments SALICYLATE (test code=LEN) mg/dL 2.8-20.0 [id number] 22:26:00* Test Item Value Reference Range Comments ALCOHOL (test code=ALC) mg/dL 0-3 URINALYSIS [id number] 22:17:00* Test Item Value Reference Range Comments UA COLOR (test code=COLU) YELLOW YELLOW UA APPEARANCE (test code=APPU) SLIGHTLY CLOUDY CLEAR UA GLUCOSE DIPSTICK (test code=DGLUU) NEGATIVE mg/dL NEGATIVE UA BILIRUBIN DIPSTICK (test code=BILU) NEGATIVE mg/dL NEGATIVE UA KETONE DIPSTICK (test code=KETU) Negative mg/dL NEGATIVE UA SPECIFIC GRAVITY (test code=SGU) 1.029 1.001-1.035 UA BLOOD DIPSTICK (test code=IRIS) 3+ (Large) NEGATIVE UA PH DIPSTICK (test code=FLAKITA) 6.0 5.0-8.0 UA PROTEIN DIPSTICK (test code=PROU) 30 (1+) mg/dL NEGATIVE UA UROBILINIOGEN DIPSTICK (test code=URO) NEGATIVE mg/dL NEGATIVE UA NITRITE DIPSTICK (test code=JUAN) NEGATIVE NEGATIVE UA LEUKOCYTE ESTERASE W REFLEX (test code=LEUUR) NEGATIVE NEGATIVE UA WBC (test code=WBCU) 0-5 #/HPF 0-5 UA RBC (test code=RBCU) >20 #/HPF 0-5 UA EPITHELIAL CELLS (test code=EPIU) MOD per HPF FEW UA BACTERIA (test code=BACU) FEW #/HPF NONE UA HYALINE CAST (test code=HYALU) 0-2 #/LPF 0-5 UA MUCUS (test code=MUCU) MODERATE #/LPF FEW Urine Source? Clean CatchDRUGS OF ABUSE SCREEN [id number] 22:17:00* Test Item Value Reference Range Comments URN COCAINE (test code=COCAURN) NEGATIVE <300 ng/mL URN CANNABINOIDS (test code=CANNABURN) NEGATIVE <50 ng/mL URN AMPHETAMINE (test code=AMPHETURN) NEGATIVE <1000 ng/mL URN BARBITURATE (test code=BARBITURN) NEGATIVE <200 ng/mL URN BENZODIAZEPINE (test code=BENZOURN) NEGATIVE <200 ng/mL URN OPIATES (test code=OPIATURN) NEGATIVE <300 ng/mL URN PHENCYCLIDINE (PCP) (test code=PHENCURN) NEGATIVE <25 ng/mL URN METHADONE (test code=METHAURN) NEGATIVE <300 ng/mL Urine Source? Clean CatchCBC W/O [id number] 22:11:00* Test Item Value Reference Range Comments WHITE BLOOD CELL (test code=WBC) 11.6 K/mm3 4.5-12.5 RED BLOOD CELL (test code=RBC) 4.67 mill/mm3 3.7-5.2 HEMOGLOBIN (test code=HGB) 11.2 gram/dL 11.5-15.5 HEMATOCRIT (test code=HCT) 37.1 % 36.0-46.0 MEAN CELL VOLUME (test code=MCV) 79.4 fL 80-98 MEAN CELL HGB (test code=MCH) 24.0 picogram 27.0-33.0 MEAN CELL HGB CONCETRATION (test code=MCHC) 30.2 gram/dL 33.0-36.0 RED CELL DISTRIBUTION WIDTH (test code=RDW) 15.3 % 11.6-16.2 PLATELET COUNT (test code=PLT) 318 K/mm3 150-450 MEAN PLATELET VOLUME (test code=MPV) 11.3 fL 6.7-11.0 CBC W/O [id number] 22:10:00* Test Item Value Reference Range Comments WHITE BLOOD CELL (test code=WBC) K/mm3 4.5-12.5 RED BLOOD CELL (test code=RBC) mill/mm3 3.7-5.2 HEMOGLOBIN (test code=HGB) gram/dL 11.5-15.5 HEMATOCRIT (test code=HCT) 37.1 % 36.0-46.0 MEAN CELL VOLUME (test code=MCV) fL 80-98 MEAN CELL HGB (test code=MCH) picogram 27.0-33.0 MEAN CELL HGB CONCETRATION (test code=MCHC) gram/dL 33.0-36.0 RED CELL DISTRIBUTION WIDTH (test code=RDW) % 11.6-16.2 PLATELET COUNT (test code=PLT) K/mm3 150-450 MEAN PLATELET VOLUME (test code=MPV) fL 6.7-11.0 URINALYSIS [id number] 21:59:00* Test Item Value Reference Range Comments UA COLOR (test code=COLU) YELLOW YELLOW UA APPEARANCE (test code=APPU) SLIGHTLY CLOUDY CLEAR UA GLUCOSE DIPSTICK (test code=DGLUU) NEGATIVE mg/dL NEGATIVE UA BILIRUBIN DIPSTICK (test code=BILU) NEGATIVE mg/dL NEGATIVE UA KETONE DIPSTICK (test code=KETU) Negative mg/dL NEGATIVE UA SPECIFIC GRAVITY (test code=SGU) 1.029 1.001-1.035 UA BLOOD DIPSTICK (test code=IRIS) 3+ (Large) NEGATIVE UA PH DIPSTICK (test code=FLAKITA) 6.0 5.0-8.0 UA PROTEIN DIPSTICK (test code=PROU) 30 (1+) mg/dL NEGATIVE UA UROBILINIOGEN DIPSTICK (test code=URO) NEGATIVE mg/dL NEGATIVE UA NITRITE DIPSTICK (test code=JUAN) NEGATIVE NEGATIVE UA LEUKOCYTE ESTERASE W REFLEX (test code=LEUUR) NEGATIVE NEGATIVE UA WBC (test code=WBCU) 0-5 #/HPF 0-5 UA RBC (test code=RBCU) >20 #/HPF 0-5 UA EPITHELIAL CELLS (test code=EPIU) MOD per HPF FEW UA BACTERIA (test code=BACU) FEW #/HPF NONE UA HYALINE CAST (test code=HYALU) 0-2 #/LPF 0-5 UA MUCUS (test code=MUCU) MODERATE #/LPF FEW Urine Source? Clean CatchDRUGS OF ABUSE SCREEN [id number] 21:59:00* Test Item Value Reference Range Comments URN COCAINE (test code=COCAURN) <300 ng/mL URN CANNABINOIDS (test code=CANNABURN) <50 ng/mL URN AMPHETAMINE (test code=AMPHETURN) <1000 ng/mL URN BARBITURATE (test code=BARBITURN) <200 ng/mL URN BENZODIAZEPINE (test code=BENZOURN) <200 ng/mL URN OPIATES (test code=OPIATURN) <300 ng/mL URN PHENCYCLIDINE (PCP) (test code=PHENCURN) <25 ng/mL URN METHADONE (test code=METHAURN) <300 ng/mL Urine Source? Clean CatchURINALYSIS [id number] 21:53:00* Test Item Value Reference Range Comments UA COLOR (test code=COLU) YELLOW YELLOW UA APPEARANCE (test code=APPU) SLIGHTLY CLOUDY CLEAR UA GLUCOSE DIPSTICK (test code=DGLUU) NEGATIVE mg/dL NEGATIVE UA BILIRUBIN DIPSTICK (test code=BILU) NEGATIVE mg/dL NEGATIVE UA KETONE DIPSTICK (test code=KETU) Negative mg/dL NEGATIVE UA SPECIFIC GRAVITY (test code=SGU) 1.029 1.001-1.035 UA BLOOD DIPSTICK (test code=IRIS) 3+ (Large) NEGATIVE UA PH DIPSTICK (test code=FLAKITA) 6.0 5.0-8.0 UA PROTEIN DIPSTICK (test code=PROU) 30 (1+) mg/dL NEGATIVE UA UROBILINIOGEN DIPSTICK (test code=URO) NEGATIVE mg/dL NEGATIVE UA NITRITE DIPSTICK (test code=JUAN) NEGATIVE NEGATIVE UA LEUKOCYTE ESTERASE W REFLEX (test code=LEUUR) NEGATIVE NEGATIVE UA WBC (test code=WBCU) per HPF 0-5 Urine Source? Clean CatchDRUGS OF ABUSE SCREEN [id number] 21:53:00* Test Item Value Reference Range Comments URN COCAINE (test code=COCAURN) <300 ng/mL URN CANNABINOIDS (test code=CANNABURN) <50 ng/mL URN AMPHETAMINE (test code=AMPHETURN) <1000 ng/mL URN BARBITURATE (test code=BARBITURN) <200 ng/mL URN BENZODIAZEPINE (test code=BENZOURN) <200 ng/mL URN OPIATES (test code=OPIATURN) <300 ng/mL URN PHENCYCLIDINE (PCP) (test code=PHENCURN) <25 ng/mL URN METHADONE (test code=METHAURN) <300 ng/mL Urine Source? Clean Catch
--- OUTSIDE RECORDS SUMMARY | 2019-07-14 20:04 | XMS REPORT ---
Author Author Admin, [place] Organization Unknown Address Unknown Phone Unavailable PROBLEMS Condition Status Date Provider Notes Hypothyroidism active Marilin Amandeep Migraines active Marilin Amandeep LOW BACK PAIN active Marilin Amandeep Major depression active Marilin Amandeep Bipolar disorder active Marilin Amandeep Lumbar disc herniation with radiculopathy active Marilin Amandeep ENCOUNTERS Date Type Provider Location Encounter Diagnosis - Ambulatory Encounter Marilin Amandeep Marilin Amandeep [facility] UNK - Ambulatory Encounter Marilin Amandeep Marilin Amandeep Jennifer Esc[facility] Lumbar disc herniation with radiculopathyBipolar disorderMajor depressionLOW BACK PAINMigrainesHypothyroidism VITAL SIGNS No Information Available ALLERGIES Allergy Name Onset Date Reaction Criticality Status AMOXICILLIN High Criticality active REASON FOR REFERRAL No Information Available RESULTS No Information Available HISTORY OF IMMUNIZATIONS No Information Available HISTORY OF MEDICATION USE Medication Instructions Dates Provider Comments TRAZODONE HCL 100 MG ORAL TABLET TK 1 T PO QHS FOR INSOMNIA Marilin Amandeep #30, 30 days supply, Prescribed by BK PATRICK, Filled 04/19/2019 PRAZOSIN HCL 2 MG ORAL CAPSULE TK 1 C PO QHS FOR NIGHTMARES Marilin Amandeep #30, 30 days supply, Prescribed by BK PATRICK, Filled 04/19/2019 LEVOTHYROXINE SODIUM 75 MCG ORAL TABLET TK 1 T PO QD Marilin Amandeep #30, 30 days supply, Prescribed by BK PATRICK, Filled 04/19/2019 HYDROXYZINE HCL 50 MG ORAL TABLET TK 1 T PO Q 6 H PRF ANXIETY Marilin Amandeep #50, 12 days supply, Prescribed by BK PATRICK, Filled 04/19/2019 BUSPIRONE HCL 10 MG ORAL TABLET Marilin Bernstein #90, 30 days supply, Prescribed by BK PATRICK, Filled 04/19/2019 IMITREX 25 MG ORAL TABLET 1 by mouth at onset of migraine headache. May repeat in 2 hours, max 200 mg per day Marilin Bernstein TYLENOL WITH CODEINE #3 300-30 MG ORAL TABLET one tablet every 8 hrs as needed for pain Marilin Bernstein GABAPENTIN 300 MG ORAL CAPSULE 1 by mouth three times a day Marilin Bernstein SOCIAL HISTORY Date Observation Value Provider family support Has step daughter Marilin Bernstein " social history reviewed E&M reviewed today Marilin Bernstein " Exercise Program Referral T Tia Escobar " Weight Management Counseling Provided T Tia Escobar " Nutrition intervention T Tia Escobar " drug use, illicit Never Tia Escobar " alcohol use Never Tia Escobar " passive cigarette smoke exposure No Tia Escobar " smoking status never smoker Tia Escobar FUNCTIONAL STATUS No Information Available MENTAL STATUS No Information Available MEDICAL EQUIPMENT No Information Available FAMILY HISTORY No Information Available INSURANCE PROVIDERS No Information Available ADVANCE DIRECTIVES No Information Available TREATMENT PLAN Date Name Ofc Vst, New Level III HISTORY OF PROCEDURES No Information Available GOALS No Information Available HEALTH CONCERNS No Information Available
--- OUTSIDE RECORDS SUMMARY | 2019-07-14 20:04 | XMS REPORT ---
Author Author Admin, [place] Organization Unknown Address Unknown Phone Unavailable PROBLEMS Condition Status Date Provider Notes Hypothyroidism active Marilin Amandeep Migraines active Marilin Amandeep LOW BACK PAIN active Marilin Amandeep Major depression active Marilin Amandeep Bipolar disorder active Marilin Amandeep Lumbar disc herniation with radiculopathy active Marilin Amandeep ENCOUNTERS Date Type Provider Location Encounter Diagnosis - Ambulatory Encounter Fax Status [facility] UNK - Ambulatory Encounter Fax Status [facility] UNK - Ambulatory Encounter Fax Status [facility] UNK - Ambulatory Encounter Fax Status [facility] UNK - Ambulatory Encounter Fax Status [facility] UNK - Ambulatory Encounter Fax Status [facility] UNK - Ambulatory Encounter Marilin Amandeep Marilin Amandeep [facility] Practice UNK - Ambulatory Encounter Marilin Amandeep Marilin Amandeep [facility] Lumbar disc herniation with radiculopathyBipolar disorderMajor depressionLOW BACK PAINMigrainesHypothyroidism VITAL SIGNS No Information Available ALLERGIES Allergy Name Onset Date Reaction Criticality Status AMOXICILLIN High Criticality active REASON FOR REFERRAL Start Date - End Date Service - Pain Management - External - Orthopedics - External RESULTS No Information Available HISTORY OF IMMUNIZATIONS [...] BUSPIRONE HCL 10 MG ORAL TABLET Marilin Amandeep #90, 30 days supply, Prescribed by BK PATRICK, Filled 04/19/2019 IMITREX 25 MG ORAL TABLET 1 by mouth at onset of migraine headache. May repeat in 2 hours, max 200 mg per day Marilin Orellanabeen TYLENOL WITH CODEINE #3 300-30 MG ORAL TABLET one tablet every 8 hrs as needed for pain Marilin Amandeep GABAPENTIN 300 MG ORAL CAPSULE 1 by mouth three times a day Marilin Bernstein SOCIAL HISTORY Date Observation Value Provider family support Has step daughter Marilinrashaun Bernstein " social history reviewed E&M reviewed [...] No Information Available TREATMENT PLAN Date Name - - Ofc Vst, New Level III HISTORY OF PROCEDURES No Information Available GOALS No Information Available HEALTH CONCERNS No Information Available
--- NOTE | 2019-07-14 22:34 | Diagnostic Imaging Report ---
Examination: CT BRAIN WO CONTRAST History:Headache; facial tingling. Comparison studies:None Technique: Axial images were obtained from the skull base to the vertex. Coronal and sagittal images reconstructed from the axial data. Dose modulation, iterative reconstruction, and/or weight based adjustment of the mA/kV was utilized to reduce the radiation dose to as low as reasonably achievable. Intravenous contrast: None Findings: Scalp: No abnormalities. Bones: No fractures, blastic or lytic lesions. Brain sulci: Appropriate for age. Ventricles: Normal in size and configuration. No hydrocephalus. Extra-axial space: No abnormalities. Parenchyma: No abnormal densities. No masses, hemorrhage, or acute or chronic cortical based vascular insults.. Sellar/suprasellar region: No abnormalities. Craniocervical junction: Patent foramen magnum. No Chiari one malformation. Incidental findings: None. Impression: No intracranial abnormalities. Signed by: Dr. Keila Alfred M.D. on 07/14/2019 10:31 PM
[2019-07-14 23:07] VITALS: BP 126/76
== END 2019-07-14 23:09 | disposition home or self-care (01) ==
LOC: ER 20:00
DX: G43.701 Chronic migraine without aura, not intractable, with status migrainosus (principal); Z88.1 Allergy status to other antibiotic agents; Z82.49 Family history of ischemic heart disease and other diseases of the circulatory system
CPT/HCPCS: 70450; 99283

== ENCOUNTER 2020-12-24 02:10 | Emergency (ER) | payer OTHER ==
[~2020-12-24] VITALS: Ht 162.6 cm; Wt 97.1 kg
[2020-12-24 02:30] LABS: BASOPHILS # (AUTO) 0.1 (0.0-0.1); BASOPHILS % 0.4 % (0.0-1.0); EOSINOPHILS # (AUTO) 0.2 (0.0-0.4); EOSINOPHILS % 1.8 % (0.0-6.0); HEMATOCRIT 39.2 % (34.2-44.1); HEMOGLOBIN 12.4 g/dL (12.0-16.0); LYMPHOCYTES # (AUTO) 3.5 (1.0-3.2); LYMPHOCYTES % 28.4 % (18.0-39.1); MEAN CORPUSCULAR HEMOGLOBIN 25.2 pg (28-32); MEAN CORPUSCULAR HGB CONC 31.6 g/dL (31-35); MEAN CORPUSCULAR VOLUME 79.5 fL (81-99); MONOCYTES # (AUTO) 0.8 (0.2-0.8); MONOCYTES % 6.8 % (4.4-11.3); NEUTROPHILS # (AUTO) 7.7 (2.1-6.9); PLATELET COUNT 287 x10e3/uL (140-360); RED BLOOD COUNT 4.93 x10e6/uL (3.6-5.1); RED CELL DISTRIBUTION WIDTH 13.7 % (11.7-14.4)
[2020-12-24] MEDS ORDERED: DICYCLOMINE HCL 20 MG/2 ML VIAL IM ONE (02:30)
[2020-12-24 02:48] LABS: AMYLASE 48 U/L (25-125); LIPASE 19 U/L (8-78)
[2020-12-24 02:52] LABS: ALBUMIN/GLOBULIN RATIO 1.1 (0.8-2.0); ANION GAP 15.6 mmol/L (8-16); CALCIUM 8.8 mg/dL (8.4-10.2); CREATININE, SERUM 0.81 mg/dL (0.57-1.11); POTASSIUM 3.6 mmol/L (3.5-5.1)
== END 2020-12-24 03:20 | disposition home or self-care (01) ==
LOC: ER 02:16
DX: K80.20 Calculus of gallbladder without cholecystitis without obstruction (principal)
CPT/HCPCS: 36415; 80053; 82150; 83690; 85025; 99283; J0500

== ENCOUNTER 2023-05-18 23:31 | Emergency (ER) | payer OTHER ==
[~2023-05-18] VITALS: Ht 162.6 cm; Wt 130.6 kg
[2023-05-18] MEDS ORDERED: ONDANSETRON HCL INJ 2MG/ML 2ML 2 MG/ML VIAL IV STA (23:48)
[2023-05-19] MEDS ORDERED: SODIUM CHLORIDE 0.9% 1000ML 1,000 ML IV ONE
[2023-05-19 00:17] LABS: BASOPHILS # (AUTO) 0.1 (0.0-0.1); BASOPHILS % 0.5 % (0.0-1.0); EOSINOPHILS # (AUTO) 0.3 (0.0-0.4); EOSINOPHILS % 2.5 % (0.0-6.0); HEMATOCRIT 34.6 % (34.2-44.1); HEMOGLOBIN 10.7 g/dL (12.0-16.0); LYMPHOCYTES # (AUTO) 2.8 (1.0-3.2); LYMPHOCYTES % 27.1 % (18.0-39.1); MEAN CORPUSCULAR HEMOGLOBIN 24.3 pg (28-32); MEAN CORPUSCULAR HGB CONC 30.9 g/dL (31-35); MEAN CORPUSCULAR VOLUME 78.5 fL (81-99); MONOCYTES % 9.3 % (4.4-11.3); NEUTROPHILS # (AUTO) 6.2 (2.1-6.9); PLATELET COUNT 339 x10e3/uL (140-360); RED BLOOD COUNT 4.41 x10e6/uL (3.6-5.1); RED CELL DISTRIBUTION WIDTH 14.9 % (11.7-14.4); WHITE BLOOD COUNT 10.31 x10e3/uL (4.8-10.8)
[2023-05-19 00:26] LABS: BILIRUBIN,URINE NEGATIVE (NEGATIVE); CLARITY,URINE CLOUDY (CLEAR); COLOR,URINE RED (YELLOW); GLUCOSE, URINE NEGATIVE (NEGATIVE); KETONES,URINE NEGATIVE (NEGATIVE); LEUKOCYTE ESTERASE ,URINE NEGATIVE (NEGATIVE); NITRITE,URINE NEGATIVE (NEGATIVE); PH,URINE 7 (5 - 7); PROTEIN,URINE DIPSTICK 1+ (NEGATIVE); URINE UROBILINOGEN 0.2 mg/dL (0.2 - 1)
[2023-05-19] MEDS ORDERED: KETOROLAC TROMETHAMINE 30 MG/ML VIAL IV STA (00:34)
[2023-05-19] MEDS ORDERED: KETOROLAC TROMETHAMINE 30 MG/ML VIAL ONE (00:38)
[2023-05-19 00:39] LABS: BACTERIA,URINE MANY /HPF; EPITHELIAL CELLS,URINE MANY /LPF; MUCUS,URINE MANY (RARE); RBC,URINE >50 /HPF (0-5)
[2023-05-19 00:40] LABS: ALBUMIN 3.5 g/dL (3.5-5.0); ALBUMIN/GLOBULIN RATIO 0.9 (0.8-2.0); ANION GAP 14.7 mmol/L (8-16); BILIRUBIN,TOTAL 0.2 mg/dL (0.2-1.2); CALCIUM 8.8 mg/dL (8.4-10.2); CREATININE, SERUM 0.94 mg/dL (0.57-1.11); POTASSIUM 3.7 mmol/L (3.5-5.1); TOTAL PROTEIN 7.4 g/dL (6.5-8.1)
[2023-05-19] MEDS ORDERED: Morphine 4mg INJECTION 4 MG/ML INJ IV ONE (01:00)
[2023-05-19] MEDS ORDERED: PROMETHAZINE HCL (IM) 25 MG/ML VIAL IM ONE (04:15)
[2023-05-19 04:53] VITALS: O2SAT 98
[2023-05-19] MEDS ORDERED: IOPAMIDOL 370 MG/ML 100 ML INFUS..BTL INJ ONE (05:39)
== END 2023-05-19 04:50 | disposition home or self-care (01) ==
LOC: ER 23:43
DX: R50.9 Fever, unspecified (principal); R11.2 Nausea with vomiting, unspecified; R10.31 Right lower quadrant pain
CPT/HCPCS: 36415; 74177; 76830; 76856; 80053; 81001; 84702; 85025; 99284; J1885; J2270; J2405; J2550; J7030; Q9967